=== PATIENT | female | born 1930 | race Caucasian/White ===

== ENCOUNTER 2018-11-07 23:30 | Inpatient (IN) | payer OTHER, MEDICARE ==
[~2018-11-07] VITALS: Ht 157.5 cm; Wt 84.6 kg
--- NOTE | ~2018-11-07 | HC ---
[facility] [place] [address] CONSULTATION Name: LAI SUMMERS Room #: 208-P [facility] IN M.R.#: [id number] Admission: 11/08/18 Attend Phys: Yenifer Llamas Discharge: 11/11/18 Date of : 31 Report #: [id number] THIS REPORT FOR: //name// CC: Jose Maria Llamas HISTORY OF PRESENT ILLNESS: This is an 88-year-old female who we are asked to see for anxiety attacks. Interestingly, this patient said that her anxiety has been under very good control and depression has been under very good control for a long period of time; however, a week prior to admission, started having difficulties with breathing. She started feeling palpitations, started feeling anxious and those all seem to cluster together, and we were asked to follow up further questions regarding this. The patient on presentation did have a QTc prolongation, and her dose of citalopram is significant, generally over age of 60, dose of citalopram over 40 mg not recommended due to issues with QTc prolongation and when you find someone who has even above 450 milliseconds on the QTC, it would be a cause of concern with that dose. So I did discuss that with her. She has felt she was in a very good control for a long period of time prior to this, and there was constellation of events including possibly getting dehydrated with use of medications for edema, using some medication antibiotic for pneumonia, but she said that this has again been a relatively new complication for her. The patient is willing to follow up in our office and outpatient support. She had some increased confusion and memory issues last several weeks. She is on high dose benzodiazepines at bedtime, which we recommend lowering as well. We will try to use alternate agents for anxiety. The patient agrees to this. MEDICAL HISTORY: History of SVT, right lower lobe atelectasis. History of CABG x 3, pneumonia, history of obstructive sleep apnea, history of triple bypass. FAMILY PSYCHIATRIC HISTORY: Mother had anxiety. ALLERGIES: MORPHINE AND SULFAMETHOXAZOLE. MEDICATIONS: Include carvedilol, gabapentin, Dieterich, vitamin D, potassium, cyclobenzaprine, temazepam, citalopram, levothyroxine, omeprazole, coenzyme Q, vitamin D, Estrace. She is also given Keflex, Coreg and Neurontin. Neurontin dose was reduced. MENTAL STATUS EXAMINATION: The patient is alert. She is oriented to being in the hospital. She did not know the date correctly. She knew the season. She knew that it was near 2017, but missed the date by 1 year. She knew she was at the beginning of the year. She is anxious and ruminative. She has to have people around her frequently because of that. She is more forgetful according to family. Thought process is perseverative. Thought content, denies suicidal and homicidal symptoms, danger to self or others. She had some limitations in her memory. She could tell me the doses of medication. She had forgotten that [facility] [address] [place] [address] CONSULTATION Name: LIA SUMMERS Room #: 208-P [facility] IN M.R.#: [id number] Admission: 11/08/18 Attend Phys: Yenifer Llamas Discharge: 11/11/18 Date of : 31 Report #: [id number] she was on Celexa, citalopram and questionable some longer acting dementing process a possibility as well. Insight and judgment limited therefore by some of her cognitive issues, but is greatly improved since admission reportedly. Her affect is pleasant, calm and cooperative. Thought process again is circumstantial. ASSETS: Supportive and agreeable to care and treatment and followup care. LIABILITIES: Severity of illness. IMPRESSION: AXIS I: 1. Anxiety. 2. History of major depressive disorder, mild. 3. Possible conduct disorder. AXIS II: Deferred. AXIS III: As above. AXIS IV: Severe. AXIS V: Global Assessment of Functioning currently 50%. PLAN: I think the patient would benefit from a lower dose of citalopram, and I am trying to switch over from citalopram to another agent such as buspirone for anxiety would be advised. Buspirone has a lower risk cardiac serrano than citalopram. We are going to half that dose now. I also think cutting down her benzodiazepine load will help with clearing up. Possibly, there was question of her memory issues. They are definitely could be repaired by a higher dose of temazepam as she is taking 30 mg. She says she has been doing that for a long time, but she did well on 15 mg last night, so we are going to send her home on 15 mg and hopefully over time that be able to be discontinued. At the same time, in the long run, possibly cutting down on citalopram altogether and using buspirone more would be more fruitful and other alternative agents could be used for sleep, so she is being discharged today, so we are going to recommend she follow up with someone in my office to continue this process of working through her medications and see how she does on our initial changes. Thank you for the consultation. If you need me any further, give me a call. By: [phone] Regulo Shultz MD /nt
[2018-11-07 23:31] VITALS: BP 150/110
[2018-11-07] MEDS ORDERED: FLEXERIL PO (23:47)
[2018-11-07] MEDS ORDERED: KLOR-CON 1010 MEQ PO (23:47)
[2018-11-07] MEDS ORDERED: RESTORIL30 MG PO (23:48)
[2018-11-07] MEDS ORDERED: CELEXA40 MG PO (23:48)
[2018-11-07] MEDS ORDERED: CARVEDILOL12.5 MG PO (23:48)
[2018-11-07] MEDS ORDERED: CRESTOR40 MG PO (23:48)
[2018-11-07] MEDS ORDERED: NEURONTIN 300300 M1 PO (23:49)
[2018-11-07] MEDS ORDERED: SYNTHROID75 MCG PO (23:49)
[2018-11-07] MEDS ORDERED: ACID REDUCER20 M1 PO (23:50)
[2018-11-07] MEDS ORDERED: NORCO 10-325 T1 EACH PO (23:51)
[2018-11-07] MEDS ORDERED: VITAMIN D2000 UNIT PO (23:52)
[2018-11-07] MEDS ORDERED: COQ-10100 MG PO (23:52)
[2018-11-07] MEDS ORDERED: NITROGLYCERIN0.4 MG SUBLING (23:53)
[2018-11-07] MEDS ORDERED: ASPIRIN81 M2 PO (23:53)
[2018-11-07] MEDS ORDERED: ESTRACE1 TUBE VAG (23:54)
[2018-11-07] MEDS ORDERED: FISH OIL 1,001000 M2 PO (23:54)
[2018-11-07] MEDS ORDERED: [UNRECOGNIZED DRUG - OTHER] PO (23:54)
[2018-11-08 00:07] LABS: HEMATOCRIT 37.1 % (37.0-47.0); HEMOGLOBIN 12.4 gm/dL (12.0-15.0); MCHC 33.5 g/dL (28.0-37.0); MCV 92.5 fL (80.0-100.0); PLATELET COUNT 190 thou/uL (150-400); RBC 4.01 mil/uL (4.20-5.00); RDW 16.3 % (10.5-14.5)
[2018-11-08 00:10] LABS: ANION GAP 18 mmol/L (7-16); BUN 12 mg/dL (7-18); CHLORIDE 100 mmol/L (98-107); CO2 22 mmol/L (21-32); CREATININE 1.1 mg/dL (0.6-1.0); GLUCOSE 153 mg/dL (74-106); POTASSIUM 3.9 mmol/L (3.5-5.1); SODIUM 140 mmol/L (136-145)
[2018-11-08 00:17] LABS: ALBUMIN 3.4 g/dL (3.4-5.0); MAGNESIUM 1.7 mg/dL (1.8-2.4); SGOT 25 U/L (15-37); SGPT 28 U/L (30-65); TOTAL BILIRUBIN 0.4 mg/dL (<0.1-1.0); TOTAL PROTEIN 7.7 g/dL (6.4-8.2); TROPONIN-I <0.06 ng/mL (<0.06)
[2018-11-08 00:19] LABS: APTT 25.2 Seconds (24.5-32.8); PROTIME 10.4 Seconds (9.3-11.4)
[2018-11-08 00:35] LABS: ABSOLUTE NEUTROPHILS 2.7 thou/uL (1.4-8.2)
[2018-11-08 00:36] LABS: URINE CLARITY CLEAR; URINE COLOR YELLOW
[2018-11-08 00:37] LABS: URINE BILIRUBIN NEGATIVE (Negative); URINE BLOOD NEGATIVE (Negative); URINE GLUCOSE-RANDOM* NEGATIVE (Negative); URINE KETONES NEGATIVE (Negative); URINE LEUKOCYTES-REFLEX NEGATIVE (Negative); URINE NITRITE-REFLEX NEGATIVE (Negative); URINE PROTEIN (DIPSTICK) 2+ (Negative); URINE UROBILINOGEN 0.2 E.U./dl (0.2-1.0)
[2018-11-08 00:38] LABS: ANISOCYTOSIS 1+
[2018-11-08 00:42] LABS: BACTERIA-REFLEX None Seen /HPF (None Seen); CASTS None Seen /LPF (None Seen); CRYSTALS None Seen /LPF (None Seen); MUCUS None Seen strn/LPF (None Seen); SQUAMOUS None Seen /LPF (0-3); URINE RBC None Seen /HPF (0-2); URINE WBC-REFLEX 0-5 Rare /HPF (0-5)
[2018-11-08] MEDS ORDERED: VITAMIN D2000 UNIT PO (02:52)
[2018-11-08 02:55] VITALS: BP 159/77
[2018-11-08 07:49] VITALS: BP 155/65
--- NOTE | 2018-11-08 08:09 | EKG ---
[place] [address] [facility] [place] [address] ELECTROCARDIOGRAM REPORT Name: LIA SUMMERS Room #: 205-P ADM IN M.R.#: [id number] Admission: 11/08/18 Attend Phys: Yenifer Llamas Discharge: Date of : 31 Report #: [id number] THIS REPORT FOR: //name// [facility] ED Test Date: 2018-11-07 Test Time: 23:36:34 Pat Name: LIA SUMMERS Department: Room: 205 Gender: F Steward/Stewardess Third: RAMAN : 1930 Requested By: Franki Horta Order Number: [id number] MD: Moise Phelan Measurements Intervals [place] Rate: 163 P: 28 VA: 154 QRS: -26 QRSD: 91 T: 118 QT: 306 QTc: 504 Interpretive Statements Supraventricular tachycardia Borderline left axis deviation Repolarization abnormality, prob rate related Baseline wander in lead(s) V1 No previous ECG available for comparison Electronically Signed On 11-08-2018 8:09:37 MEDICAL RECORD ASSISTANT by Moise Phelan [email or web address] <ELECTRONICALLY SIGNED> By: Moise Phelan MD, [facility] 11/08/18 0809 35 35 Moise Phelan MD, FAC /EPI
--- NOTE | 2018-11-08 08:10 | EKG ---
[address] [place] [address] ELECTROCARDIOGRAM REPORT Name: LIA SUMMERS Room #: 205-P ADM IN M.R.#: [id number] Admission: 11/08/18 Attend Phys: Yenifer Llamas Discharge: Date of : 31 Report #: [id number] THIS REPORT FOR: //name// [facility] ED Test Date: 2018-11-08 Test Time: 00:46:59 Pat Name: LIA SUMMERS Department: Room: 205 Gender: F Management Scientist: RAMAN : 1930 Requested By: Franki Horta Order Number: [id number] MD: Moise Phelan Measurements Intervals [place] Rate: 79 P: 67 DC: 223 QRS: 1 QRSD: 96 T: 39 QT: 443 QTc: 508 Interpretive Statements Sinus rhythm Prolonged DC interval Prolonged QT interval No previous ECG available for comparison Electronically Signed On 11-08-2018 8:10:00 FLOOR LAYER APPRENTICE by Moise Phelan [email or web address] <ELECTRONICALLY SIGNED> By: Moise Phelan MD, [facility] 11/08/18 0810 0046 0046 Moise Phelan MD, FACC /EPI
--- NOTE | 2018-11-08 08:37 | NUR ---
PT. ARRIVED AT 3:00 WITH SPOUSE; AOX4; FORGETFUL; VS WNL; NO C/O PAIN; ST. WOULD LIKE TO REST DURING THE REST OF THE NIGHT; ADMISSION ASSESSMENT PERFORMED; NO C/O DURING THE NIGHT. ASSESSMENT CHARGED; FOLLOWING POC.
--- NOTE | 2018-11-08 09:54 | 2DMMODE ---
[facility] [address] [place] [address] 2 D/M-MODE ECHOCARDIOGRAM Name: LIA SUMMERS Room #: 205-P ADM IN M.R.#: [id number] Admission: 11/08/18 Attend Phys: Yenifer Pelayo Discharge: Date of : 31 Date of Service: 11/08/18 0954 Report #: [id number] THIS REPORT FOR: //name// APPROVED REPORT Study performed: 11/08/2018 08:51:52 EXAM: Comprehensive 2D, Doppler, and color-flow Echocardiogram Patient Location: Bedside Room #: 205 Status: routine BSA: 1.83 HR: 76 bpm BP: 155/65 mmHg Rhythm: NSR Other Information Study Quality: FairAdequate Indications SVT. Hx: CABG 2D Dimensions RVDd: 31.11 mm IVSd: 11.08 (7-11mm) LVOT Diam: 19.09 (18-24mm) LVDd: 49.96 mm PWd: 11.95 (7-11mm) Ascending Ao: 29.76 (22-36mm) LVDs: 29.41 (25-40mm) Aortic Root: 31.16 mm Volumes Left Atrial Volume (Systole) Single Plane 4CH: 55.86 mL Single Plane 2CH: 51.83 mL Aortic Valve AoV Peak Dequan.: 1.36 m/s AO Peak Gr.: 7.37 mmHg LVOT Max P.61 mmHg LVOT Max V: 1.18 m/s ESVIN Vmax: 2.50 cm2 Mitral Valve E/A Ratio: 0.8 MV Decel. Time: 203.12 ms MV E Max Dequan.: 0.92 m/s MV A Dequan.: 1.16 m/s [facility] [address] [place] [address] 2 D/M-MODE ECHOCARDIOGRAM Name: LIA SUMMERS Room #: 205-P [facility] IN ..#: [id number] Admission: 11/08/18 Attend Phys: Yenifer Pelayo Discharge: Date of : 31 Date of Service: 11/08/18 0954 Report #: [id number] MV PHT: 58.91 ms IVRT: 65.74 ms Pulmonary Valve PV Peak Dequan.: 0.97 m/s PV Peak Gr.: 3.78 mmHg Pulmonary Vein P Vein S: 0.51 m/s P Vein D: 0.52 m/s P Vein S/D Ratio: 0.98 Tricuspid Valve TR Peak Dequan.: 2.95 m/s RAP Estimate: 5.00 mmHg TR Peak Gr.: 34.77 mmHg PA Pressure: 40.00 mmHg Left Ventricle The left ventricle is normal size. Mild concentric left ventricular hypertrophy. Left ventricular systolic function is normal. LVEF is 55-60%. Mild diastolic dysfunction is present (impaired relaxation pattern). Right Ventricle The right ventricle is normal size. The right ventricular systolic function is normal. Atria Left atrium is mildly dilated. The right atrium size is normal. Aortic Valve The Aortic valve is sclerotic. No aortic regurgitation is present. There is no aortic valvular stenosis. Mitral Valve Mitral valve leaflets are thickened and calcified. Moderate mitral annular calcification. Mild to moderate mitral regurgitation. Tricuspid Valve The tricuspid valve is normal in structure. Mild tricuspid regurgitation. Estimated PAP is 40mmHg. Pulmonic Valve Pulmonic valve is not well visualized. Trace pulmonic regurgitation. [facility] [employer] [place] [address] 2 D/M-MODE ECHOCARDIOGRAM Name: LIA SUMMERS Room #: 205-P ADM IN M.R.#: [id number] Admission: 11/08/18 Attend Phys: Yenifer Pelayo Discharge: Date of : 31 Date of Service: 11/08/18 0954 Report #: [id number] Great Vessels The aortic root is normal in size. The ascending aorta is normal in size. IVC is normal in size and collapses >50% with inspiration. Pericardium There is no pericardial effusion. <Conclusion> The left ventricle is normal size. Mild concentric left ventricular hypertrophy. Left ventricular systolic function is normal. Mild diastolic dysfunction is present (impaired relaxation pattern). The right ventricle is normal size. Left atrium is mildly dilated. The right atrium size is normal. The Aortic valve is sclerotic. Mitral valve leaflets are thickened and calcified. Moderate mitral annular calcification. Mild to moderate mitral regurgitation. Mild tricuspid regurgitation. Estimated PAP is 40mmHg. <ELECTRONICALLY SIGNED> By: Willian Aguillon MD 11/08/1854 3 3 Willian Aguillon MD /INF
--- NOTE | 2018-11-08 11:57 | NUR ---
met with patient who admits with PNA, palpatations. Patient resides at [facility] with spouse. Reports she uses a walker in/out of [facility]. She has nocturnal oxygen usu at 4L at home and uses a CPAP. Her oxygen is provided by provider plus. plan home with possible HH care.
[2018-11-08 12:02] VITALS: BP 154/75
[2018-11-08 14:57] VITALS: BP 158/88
[2018-11-08 20:07] VITALS: BP 180/89
--- NOTE | 2018-11-08 20:37 | NUR ---
ASSUMED CARE OF PT AT 0700. PT A&OX4, UP WITH ASSIST TO BEDSIDE COMMODE. PT VITALS WNL EXCEPT BLOOD PRESSURE HIGH. CARDIOLOGY INCREASE CORREG DOSAGE. PT'S NAUSEA CONTROLLED WITH ZOFRAN. PT STATED SHE WAS FEELING BETTER THIS AFTERNOON. PT IS SINUS RHYTHM ON TELEMETRY. WILL CONT WITH POC.
[2018-11-08 23:56] VITALS: BP 160/80
[2018-11-09 03:48] VITALS: BP 146/74
[2018-11-09 07:24] VITALS: BP 155/81
--- NOTE | 2018-11-09 07:28 | NUR ---
PT. NOT ABLE TO REST DURING THE NIGHT; PRN SLEEPING MEDICATION NO ORDER PASSED ON REPORT; PRN BENADRIL GIVEN WITH HS MEDICATION; PT. NOT ABLE TO REST; ONE TIME BENADRIL AND PRN MELATONIN GIVEN AROUND 01:30; PT. ABLE TO REST FROM TIME TO TIME ABOUT 30 MIN; REQUESTED WALKING AT 3:00 AM; WALKED FROM BED TO NURSE STATION AND COME BACKED DUE TO LEG WEAKNESS AND MUSCLE CRAMPS; NO ABLE TO PEE DURING THE NIGHT ALTHOUGH REQUESTED X6; BLADDER SCANNER SHOWED 517ML; SMOKE AND FLAME SPECIALIST NOTIFIED; STRAIGH CATH X1; 500ML OUT; C/O PAIN DUE TO STRAIGH CATH; REQUESTED HOME SLEEP MEDICATION (RESTORIL) IF STAY DURING THE NIGHT; PASSED ON REPORT.
[2018-11-09 10:15] LABS: HCO3 21.9 mmol/L (22.0-26.0); PCO2 38.6 mmHg (35.0-45.0); PO2 108.2 mmHg (80.0-100.0); pH 7.371 (7.360-7.450); sO2 97.8 % (92.0-98.0)
[2018-11-09 15:21] VITALS: BP 156/86
[2018-11-09 20:15] VITALS: BP 177/78
[2018-11-10] VITALS (7 sets, daily range): BP systolic 144–183; BP diastolic 65–95
[2018-11-10 04:47] LABS: CALCIUM 9.4 mg/dL (8.5-10.1); CREATININE 1.2 mg/dL (0.6-1.0); PHOSPHORUS 4.1 mg/dL (2.5-4.9); POTASSIUM 3.8 mmol/L (3.5-5.1)
--- NOTE | 2018-11-10 07:58 | NUR ---
PT. A0X4; FORGETFUL; C/O R. HIP PAIN EARLY ON THE NIGHT; ACETAMINOPHEN GIVEN PER ORDER; ST. NO RELIEVE PAIN; TURNED ON HER L. SIDE AND APPLIED SOME WARM TOWELS; ST. PAIN RELIEFE; SBP ON THE 170'S; FIELD HAND CONTACTED; NEW ORDERS ON PLACE; NO ABLE TO CONTROL BLADDER AFTER STRAIGHT CATH ON 11/09/18; NO ABLE TO SLEEP FOR THE THIRD NIGHT; PT. ST STATED WILL ORDER PRN SLEEP MEDICATION; NO NEW ORDERS ON PLACE; BENADRIL AND MELATONIN GIVEN PER ORDERS; PT. NO ABLE TO SLEEP DURING THE NIGHT; ASSESSMENT CHARGERED; FOLLOWING POC; PASSED ON REPORT.
--- NOTE | 2018-11-10 13:22 | NUR ---
FAXED REFERRAL TO [facility]. LEFT MSG WITH VEL IN ADM. THAT REFERRAL SENT AND JOHNY TALBOT OVER WEEKEND. DCP TO FOLLOW.
--- NOTE | 2018-11-10 13:29 | NUR ---
FAXED REFERRAL TO [facility] ST[facility]. SPOKE WITH VEL IN ADM. AND SHE RECEIVED REFERRAL FOR POSS. DC OVER THE WEEKEND. DCP TO FOLLOW.
--- NOTE | 2018-11-10 13:54 | NUR ---
Consumer Relations Specialist visited with the pt and her spouse at bedside this afternoon regarding dc planning recommendations and options. The pt is feeling better today and indicates that she prefers to return to her indep living apt with her spouse and have [facility] services for RN and therapy followup. She has had them before. She has a rwalker, and her cpap/o2 setup for noc. She will consider SNF at [facility] if she does not feel safe returning to her apt. [facility] SNF has a bed for her and can accept her over the weekend. Plan A: setup HH with [facility] by calling [phone] and faxing dc summary and instructions to [phone]. Plan B: SNF at [facility] by calling Stefanie taylor [phone] to confirm and arrange transport. Orders would need to be faxed to [phone] and report called to [phone]. Chart copy would be needed.
--- NOTE | 2018-11-10 14:29 | EKG ---
[address] [address] ELECTROCARDIOGRAM REPORT Name: LIA SUMMERS Room #: 208-P ADM IN M.R.#: [id number] Admission: 11/08/18 Attend Phys: Yenifer Llamas Discharge: Date of : 31 Report #: [id number] THIS REPORT FOR: //name// [facility] Test Date: 2018-11-10 Test Time: 07:38:23 Pat Name: LIA SUMMERS Department: Room: 208 P Gender: F Senior Project Leader/Team Lead: STORM : 1930 Requested By: Tameka Camacho Order Number: [id number] MD: Castillo Castelan Measurements Intervals [place] Rate: 73 P: MN: QRS: 8 QRSD: 98 T: 43 QT: 435 QTc: 480 Interpretive Statements Atrial fibrillation Baseline wander in lead(s) V6 Compared to ECG 11/08/2018 00:46:59 Sinus rhythm no longer present First degree AV block no longer present Prolonged QT interval no longer present Electronically Signed On 11-10-2018 14:29:39 LEAD ESTHETICIAN by Castillo Castelan [email or web address] <ELECTRONICALLY SIGNED> By: Castillo Castelan MD 11/10/18 1429 0738 0738 Castillo Castelan MD /HANNAH
--- NOTE | 2018-11-10 18:36 | NUR ---
PT WITH SEVERAL EPISODES THIS AFTERNOON OF ANXIETY STATING, "SOMETHING IS WRONG". PT AOX4 WHEN QUESTIONED BUT DURING COVERSATIONS WOULD MAKE STATEMENTS THAT HAVE NOTHING TO DO WITH OUR TOPIC. CALLED AT APROX 1830 AFTER VISITING TO LET ME KNOW THAT HE NOTICED HER ANXIETY ALSO. PT'S O2 SAT ON RA TODAY APROX 95 TO 97 PERCENT. PRESSURE THIS AFTERNOON 183 SYS, HYDRALAZINE GIVEN. PT ATE VERY LITTLE TODAY STATING THAT SHE'S JUST NOT HUNGRY. PT IS LOOKING FORWARD TO RESTORIL THIS EVENING R/T NO SLEEP FOR WHICH SHE SAYS HAS BEEN THREE DAYS. WILL MONITOR.
--- NOTE | 2018-11-11 00:39 | NUR ---
PT IS ALERT AND ORIENTED X 2-3. SHE IS FREQUENTLY CONFUSED AND FORGETFUL. SHE DENIES PAIN AT THIS TIME. RECORDS FROM [facility] WERE REQUESTED AND RECEIVED. RECORDS FROM HER COMMERCIAL CORRESPONDENT WERE ALSO REFAXED. THE PATIENT STATES THAT SHE HAS NOT SLEPT IN THREE DAYS. HER VOICED GOAL TONIGHT IS TO SLEEP. TRYING TO CLUSTER CARE. WILL CONTINUE TO MONITOR.
[2018-11-11 04:45] VITALS: BP 177/78
[2018-11-11 07:35] VITALS: BP 185/95
[2018-11-11] MEDS ORDERED: KEFLEX500 M1 PO (09:21)
[2018-11-11] MEDS ORDERED: NEURONTIN 300300 M1 PO (09:22)
[2018-11-11] MEDS ORDERED: CARVEDILOL25 MG PO (09:22)
[2018-11-11 12:15] VITALS: BP 150/76
[2018-11-11 12:22] LABS: URINE BILIRUBIN NEGATIVE (Negative); URINE BLOOD NEGATIVE (Negative); URINE CLARITY CLEAR; URINE COLOR YELLOW; URINE GLUCOSE-RANDOM* NEGATIVE (Negative); URINE KETONES NEGATIVE (Negative); URINE NITRITE-REFLEX NEGATIVE (Negative); URINE PROTEIN (DIPSTICK) NEGATIVE (Negative); URINE UROBILINOGEN 0.2 E.U./dl (0.2-1.0)
[2018-11-11 12:23] LABS: URINE LEUKOCYTES-REFLEX NEGATIVE (Negative)
--- NOTE | 2018-11-11 14:12 | NUR ---
PT TO TRANFER TO [facility] AT 1600, PT AND ASHANTI SPOUSE NOTIFIED. PSYC AT BEDSIDE AT 1400 TO ADDRESS PT'S ANXIETY. WILL MONITOR.
[2018-11-11] MEDS ORDERED: RESTORIL15 MG PO (14:23)
[2018-11-11] MEDS ORDERED: BUSPIRONE HCL10 MG PO (14:23)
[2018-11-11] MEDS ORDERED: CELEXA20 MG PO (14:23)
--- NOTE | 2018-11-11 15:58 | NUR ---
PT DISCHARGE - TRANSPORT HERE AT 1600, PT OFF UNIT AT 1600 VIA WHEELCHAIR WITH BELONGINGS, FAMILY AWARE.
== END 2018-11-11 16:00 | DRG 70 ==
LOC: ER 23:30 → 2N 11-08 01:15 → EROBS 11-08 01:15 → 2N 11-08 02:18
PROVIDERS: Emergency Medicine; Nurse Practitioner Family; ADMIT Hospitalist
DX: G93.41 Metabolic encephalopathy (principal); J18.9 Pneumonia, unspecified organism; I47.1 Supraventricular tachycardia; F32.0 Major depressive disorder, single episode, mild; J98.11 Atelectasis; J01.00 Acute maxillary sinusitis, unspecified; F41.9 Anxiety disorder, unspecified; G47.33 Obstructive sleep apnea (adult) (pediatric); I25.10 Atherosclerotic heart disease of native coronary artery without angina pectoris; I34.0 Nonrheumatic mitral (valve) insufficiency; M62.84 Sarcopenia; N18.3 Chronic kidney disease, stage 3 (moderate); G62.9 Polyneuropathy, unspecified; I12.9 Hypertensive chronic kidney disease with stage 1 through stage 4 chronic kidney disease, or unspecified chronic kidney disease; R26.81 Unsteadiness on feet; M16.0 Bilateral primary osteoarthritis of hip; E83.42 Hypomagnesemia; E78.5 Hyperlipidemia, unspecified; Z96.643 Presence of artificial hip joint, bilateral; Z95.1 Presence of aortocoronary bypass graft; Z79.82 Long term (current) use of aspirin; Z79.899 Other long term (current) drug therapy; Z88.1 Allergy status to other antibiotic agents; Z88.2 Allergy status to sulfonamides; Z88.5 Allergy status to narcotic agent; Z81.8 Family history of other mental and behavioral disorders
CPT/HCPCS: 10081

== ENCOUNTER → 2019-08-31 | Outpatient (CLI) | payer OTHER, MEDICARE ==
[~2019-08-31] MED LIST: ACID REDUCER20 M1 PO; ASPIRIN81 M2 PO; BUSPIRONE HCL10 MG PO; CARVEDILOL12.5 MG PO; CARVEDILOL25 MG PO; CELEXA20 MG PO; CELEXA40 MG PO; COQ-10100 MG PO; CRESTOR40 MG PO; ESTRACE1 TUBE VAG; FISH OIL 1,001000 M2 PO; FLEXERIL PO; KEFLEX500 M1 PO; KLOR-CON 1010 MEQ PO; NEURONTIN 300300 M1 PO; NITROGLYCERIN0.4 MG SUBLING; NORCO 10-325 T1 EACH PO; RESTORIL15 MG PO; RESTORIL30 MG PO; SYNTHROID75 MCG PO; VITAMIN D2000 UNIT PO; [UNRECOGNIZED DRUG - OTHER] PO
[2019-08-31 14:33] LABS: ABSOLUTE NEUTROPHILS 1.7 thou/uL (1.4-8.2); BASOPHILS 0.6 % (0.0-2.0); HEMATOCRIT 34.4 % (37.0-47.0); HEMOGLOBIN 10.9 gm/dL (12.0-15.0); LYMPHOCYTES 52.4 % (24.0-44.0); MCH 29.6 pg (26.0-34.0); MCHC 31.7 g/dL (28.0-37.0); MCV 93.6 fL (80.0-100.0); MONOCYTES 9.9 % (1.0-8.0); PLATELET COUNT 155 thou/uL (150-400); POLYS 32.1 % (36.0-66.0); RBC 3.67 mil/uL (4.20-5.00); RDW 16.7 % (10.5-14.5); URINE BILIRUBIN NEGATIVE (Negative); URINE BLOOD NEGATIVE (Negative); URINE CLARITY CLEAR; URINE COLOR YELLOW; URINE GLUCOSE-RANDOM* NEGATIVE (Negative); URINE KETONES NEGATIVE (Negative); URINE LEUKOCYTES TRACE (Negative); URINE NITRITE NEGATIVE (Negative); URINE PROTEIN (DIPSTICK) NEGATIVE (Negative); URINE UROBILINOGEN 0.2 E.U./dl (0.2-1.0); WBC 5.4 thou/uL (4.0-11.0)
[2019-08-31 14:37] LABS: CALCIUM 9.8 mg/dL (8.5-10.1); CREATININE 1.3 mg/dL (0.6-1.0); POTASSIUM 4.6 mmol/L (3.5-5.1)
[2019-08-31 14:40] LABS: PROTIME 10.1 Seconds (9.3-11.4)
--- NOTE | 2019-08-31 16:25 | EKG ---
[place] [address] [address] [facility] [place] [address] ELECTROCARDIOGRAM REPORT Name: LIA SUMMERS [facility] [id number] Admission: 08/31/19 Attend Phys: Da Johnson MD Discharge: Date of : 31 Report #: [id number] THIS REPORT FOR: //name// [facility] Test Date: 2019-08-31 Test Time: 14:55:00 Pat Name: LIA SUMMERS Department: Room: Gender: F Paper Wood Cutter: Kacie TINEO : 1930 Requested By: Da Johnson Order Number: [id number] MD: Moise Phelan Measurements Intervals [place] Rate: 77 P: 54 WI: 219 QRS: -10 QRSD: 100 T: 40 QT: 406 QTc: 460 Interpretive Statements Sinus rhythm Borderline prolonged WI interval Poor R wave progression No previous ECGs available for comparison Electronically Signed On 08-31-2019 16:25:01 AIRCRAFT LINE ASSEMBLER by Moise Phelan [email or web address] <ELECTRONICALLY SIGNED> By: Moise Phelan MD, [facility] 08/31/19 1625 1455 1455 Moise Phelan MD, FACC /EPI
== END ==
LOC: CV 13:41
DX: Z01.818 Encounter for other preprocedural examination (principal); Z13.9 Encounter for screening, unspecified